=== PATIENT | female | born 1985 | race Hispanic/Latino ===

== ENCOUNTER 2021-05-11 13:44 | Outpatient (RCR) | payer BC | END 2021-05-13 | LOC: PT 13:44 | PROVIDERS: ATTEND Specialist | DX: S39.012D Strain of muscle, fascia and tendon of lower back, subsequent encounter (principal); G57.12 Meralgia paresthetica, left lower limb; M62.81 Muscle weakness (generalized); M53.86 Other specified dorsopathies, lumbar region ==